=== PATIENT | female | born 1980 | race Caucasian/White ===

== ENCOUNTER → 2017-12-11 08:16 | Outpatient (CLI) | payer OTHER, SELFPAY ==
--- NOTE | 2017-12-11 08:24 | CT_ITS ---
CT abdomen pelvis w con CLINICAL INDICATION: Left upper quadrant pain and epigastric pain ITS.REASON: LUQ PAIN ORDERING PHYSICIAN: Liz Zeng PATIENT AGE: 37 years TECHNIQUE: Axial images obtained with sagittal and coronal reformats. All CT scans at the facility use one or more dose reduction, viz: automated exposure control; ma/kV adjustment per patient size (including targeted exams where dose is matched to indication; i.e. head); or iterative reconstruction technique. PROCEDURE: Oral Contrast: Redicat IV Contrast: 75 mL's of Isovue-370. FINDINGS: No acute finding in the lung bases. There is a small hyperdense nodule in the right lower lobe at 3 mm and may be due to granuloma. A pleural opacity is present in the left lung base posteriorly at 7 x 2 mm nonspecific could be due to postinflammatory fibrotic change. No effusions. The liver, spleen, adrenal glands, and pancreas have an unremarkable appearance. There has been prior cholecystectomy. No ductal dilatation. The kidneys have an unremarkable appearance. No evidence of renal calculi or obstructing ureteral calculi. No intestinal obstruction or free air is evident. There is a mild amount retained colonic feces throughout the colon. No evidence of appendicitis or diverticulitis. The uterus is somewhat canted toward the right. There is an intrauterine device present in good position. There is a small amount of free fluid in the pelvis. There is a 2 cm area of low density in the left adnexal region. This is of fat density and may be due to a dermoid in the left adnexa. It is difficult to determine the exact measurement of the left ovary due to overlying unopacified bowel. This may be better evaluated with ultrasound of clinically warranted. No acute bony anomalies. No abdominal wall hernias. IMPRESSION: 1. No acute abdominal or pelvic findings. 2. Small amount of free fluid in the pelvis. 3. Possible small left dermoid cyst of the adnexa. 4. Mild amount retained colonic feces in the colon suggesting constipation
== END ==
LOC: RAD 08:17
PROVIDERS: Family Provider Family Medicine; PCP Family Medicine; Visit Provider Nurse Practitioner Family
DX: R10.12 Left upper quadrant pain (principal)
CPT/HCPCS: 74177; Q9967

== ENCOUNTER → 2020-06-21 14:59 | Outpatient (POV) | payer OTHER, SELFPAY | PROVIDERS: Visit Provider Nurse Practitioner Family | DX: Z00.00 Encounter for general adult medical examination without abnormal findings (principal) ==